=== PATIENT | male | born 1960 ===

== ENCOUNTER 2017-02-09 16:40 | Emergency (ER) | payer OTHER ==
[2017-02-09 17:15] VITALS: BMI 31.1
[2017-02-09 17:17] VITALS: O2SAT 100
--- NOTE | 2017-02-09 17:28 | C.PDOC ---
History Of Present Illness 56M c/o left leg pain worse with walking. he was seen for this same complaint here last month. he also admits to intermittent non-exertional left side chest pain radiating to left shoulder for the last "3 or 4 months." no exac or reliev fx. occasional sob. htn denies other pmh. no smoking. no chest pain currently- last time he felt chest pain was 1 week ago. he says his main concern today is his leg. Time Seen by Provider: 02/09/17 17:28 Chief Complaint (Nursing): Lower Extremity Problem/Injury Past Medical History Vital Signs: Last Vital Signs Temp 98.0 F 02/09/17 20:54 Pulse 65 02/09/17 20:54 Resp 18 02/09/17 20:54 BP 141/95 H 02/09/17 20:54 Pulse Ox 100 02/09/17 21:01 - Medical History PMH: HTN Family History: States: Unknown Family Hx - Social History Hx Alcohol Use: No Hx Substance Use: No - Immunization History Hx Influenza Vaccination: No Review Of Systems Except As Marked, All Systems Reviewed And Found Negative. Constitutional: Negative for: Fever, Chills Cardiovascular: Positive for: Chest Pain. Negative for: Palpitations Respiratory: Positive for: Shortness of Breath. Negative for: Cough, Hemoptysis , Wheezing Gastrointestinal: Negative for: Nausea, Vomiting, Abdominal Pain, Diarrhea Neurological: Negative for: Weakness, Headache Physical Exam - Physical Exam Appears: Well, Non-toxic, Toxic Skin: Warm, Dry Head: Atraumatic Eye(s): bilateral: PERRL Oral Mucosa: Moist Neck: Normal ROM Chest: No Tenderness, No Subcutaneous Emphysema Cardiovascular: Rhythm Regular, No Murmur Respiratory: No Decreased Breath Sounds, No Accessory Muscle Use, No Rales, No Rhonchi, No Stridor, No Wheezing Gastrointestinal/Abdominal: Soft, No Tenderness Extremity: No Swelling Pulses: Left Radial: Normal, Right Radial: Normal, Left Dorsalis Pedis: Normal, Right Dorsalis Pedis: Normal Neurological/Psych: Oriented x3, Normal Motor, Normal Sensation, Other (no focal deficits) ED Course And Treatment - Laboratory Results Result Diagrams: 02/09/17 17:49 02/09/17 17:49 O2 Sat by Pulse Oximetry: 100 Medical Decision Making Medical Decision Making: I spoke w resident in the clinic who is sent this pt for possible admission for chest pain and leg pain- they requested several lab tests which were ordered. pt was here last month for same leg pain- had neg venous duplex HEART score low risk 1654 I called the hospitalist Dr Knapp for admission- he came down and evaluated the patient and does not feel the patient needs to be admitted- he recommends discharge. the pt is currently stable w nl ecg and neg trop and benign exam- no leg swelling, no neuro or pulse deficits, legs warm and well- perfused. he is comfortable w plan for close outpt follow up and return if worse. Disposition - Disposition Referrals: [facility] [Outside] Disposition: HOME/ ROUTINE Disposition Time: 21:01 Condition: STABLE Additional Instructions: Please follow up with your doctor tomorrow. Return to the ER for any worsening symptoms or for any other concerns. Instructions: Chest Pain (ED), Leg Pain (ED) Forms: Gen Discharge Inst Chinese Print Language: SLOVENIAN - Clinical Impression Clinical Impression: Leg pain, Chest pain
[2017-02-09 17:52] LABS: BASO % 0.3 % (0.0-2.0); EOS # 0.2 K/uL (0.0-0.7); EOS % 3.4 % (0.0-4.0); HEMATOCRIT 45.2 % (35.0-51.0); LYMPH # 1.9 K/uL (1.0-4.3); LYMPH % 26.1 % (20.0-40.0); MEAN CELL VOLUME 91.8 fL (80.0-94.0); MEAN CORPUSCULAR HEMOGLOBIN 30.7 pg (27.0-31.0); MEAN CORPUSCULAR HGB CONC 33.5 g/dL (33.0-37.0); MEAN PLATELET VOLUME 8.9 fL (7.2-11.7); MONO # 0.8 K/uL (0.0-0.8); MONO % 10.8 % (0.0-10.0); RED CELL DISTRIBUTION WIDTH 13.4 % (11.5-14.5); WHITE BLOOD COUNT 7.1 K/uL (4.8-10.8)
[2017-02-09 18:05] LABS: CHLORIDE 96 mmol/L (98-107)
[2017-02-09 18:06] LABS: POTASSIUM 4.1 mmol/L (3.6-5.2); SODIUM 140 mmol/L (132-148)
[2017-02-09 18:08] LABS: CARBON DIOXIDE 28 mmol/L (22-30); CHOLESTEROL 163 mg/dL (0-199); GFR AFRICAN-AMERICAN > 60
[2017-02-09 18:09] LABS: ALB/GLOB RATIO 1.2 (1.0-2.1); ALKALINE PHOSPHATASE 80 U/L (38-126); ALT/SGPT 43 U/L (21-72); AST/SGOT 43 U/L (17-59); BILIRUBIN,TOTAL 0.8 mg/dL (0.2-1.3); BLOOD UREA NITROGEN 14 mg/dL (9-20); CALCIUM 9.4 mg/dl (8.6-10.4); GLUCOSE,RANDOM 89 mg/dL (75-110)
[2017-02-09 18:39] LABS: THYROID STIMULATING HORMONE 0.81 mIU/L (0.46-4.68)
--- NOTE | 2017-02-09 18:42 | RAD ---
HISTORY: Chest pain COMPARISON: No prior. FINDINGS: LUNGS: The lungs are clear. PLEURA: No significant pleural effusion identified, no pneumothorax apparent. CARDIOVASCULAR: Normal. OSSEOUS STRUCTURES: No significant abnormalities. VISUALIZED UPPER ABDOMEN: Normal. OTHER FINDINGS: None. IMPRESSION: No active pulmonary disease.
[2017-02-09 20:56] VITALS: BP 141/95; PULSE 65; RESP 18; TEMP 98
--- NOTE | 2017-02-10 04:55 | CP.PCM.CON ---
History of Present Illness - History of Present Illness History of Present Illness: Medicine Consult CC: "left leg nerve pain and hypertension" HPI: Pt is a 56M with medical history of hypertension who presented to the emergency department complaining of left lower extremity calf pain radiating to proximal thigh. Patient states the pain is intermittent, "nerve pain" and sometimes associated with right upper extremity shoulder pain. He denies loss of sensation or tingling. He said he came to the hospital 15 days ago for the same complaint, was discharged, but the pain never fully resolved. Patient states he is able to walk 500-600 meters prior to experiencing leg pain, which causes him to limp. He had venous doppler of the leg done which did not show a clot. Patient also voices concern in regards to his blood pressure which he states is elevated at home despite taking his blood pressure medication, Norvasc 5 mg po daily, which he has been taking for 3 years. Patient also reports previous episodes of chest pain which last approximately 30 minutes and resolve. Patient denies chest pain today. He also denies palpitations, shortness of breath, abdominal pain, nausea, vomiting, diarrhea, constipation and urinary symptoms. PMD: established care at [facility] PMH: Hypertension Medications: Norvasc 5 mg po daily Allergies: NKDA Family History: Mom from complications related to diabetes, no cardiac disease Surgical History: none Social: Denies tobacco, alcohol and drug use. Works as a danica in grocery store. Review of Systems - Constitutional Constitutional: absent: Chills, Fever - EENT Eyes: absent: Blurred Vision, Change in Vision Nose/Mouth/Throat: absent: Nasal Congestion, Nasal Discharge - Cardiovascular Cardiovascular: Leg Edema, Radiating Pain. absent: Chest Pain, Dyspnea, Dyspnea on Exertion, Palpitations - Respiratory Respiratory: absent: Dyspnea, Dyspnea on Exertion, Wheezing, Chest Congestion - Gastrointestinal Gastrointestinal: absent: Abdominal Pain, Constipation, Diarrhea, Nausea, Vomiting - Genitourinary Genitourinary: absent: Change in Urinary Stream - Musculoskeletal Musculoskeletal: Radiating Pain into Limb. absent: Arthralgias, Numbness, Tingling - Integumentary Integumentary: absent: Changing Lesions, New Lesions - Neurological Neurological: absent: Dizziness, Numbness, Focal Weakness, Headaches - Psychiatric Psychiatric: absent: Anxiety, Depression Past Patient History - Past Social History Smoking Status: Never Smoked - CARDIAC Hx Hypertension: Yes - PSYCHIATRIC Hx Substance Use: No - SURGICAL HISTORY Hx Surgeries: No - ANESTHESIA Hx Anesthesia: No Meds Allergies/Adverse Reactions: Allergies Allergy/AdvReac Type Severity Reaction Status Date / Time No Known Allergies Allergy Verified 02/09/17 17:14 Physical Exam - Constitutional Appears: Non-toxic, No Acute Distress - Head Exam Head Exam: ATRAUMATIC, NORMAL INSPECTION, NORMOCEPHALIC - Eye Exam Eye Exam: EOMI, Normal appearance, PERRL - ENT Exam ENT Exam: Mucous Membranes Moist - Respiratory Exam Respiratory Exam: Clear to Auscultation Bilateral, NORMAL BREATHING PATTERN. absent: Rales, Rhonchi, Wheezes - Cardiovascular Exam Cardiovascular Exam: +S1, +S2. absent: Tachycardia, Diastolic murmur, Systolic Murmur - GI/Abdominal Exam GI & Abdominal Exam: Normal Bowel Sounds, Soft. absent: Distended, Firm, Guarding, Hernia - Extremities Exam Extremities exam: Positive for: pedal pulses present. Negative for: calf tenderness, joint swelling Additional comments: 1+ pitting edema to bilateral lower extremity - Back Exam Back exam: NORMAL INSPECTION - Neurological Exam Neurological exam: Alert, CN II-XII Intact, Oriented x3 - Psychiatric Exam Psychiatric exam: Normal Affect, Normal Mood - Skin Skin Exam: Normal Color, Warm Results - Vital Signs Recent Vital Signs: Last Vital Signs Temp 98.0 F 02/09/17 20:54 Pulse 65 02/09/17 20:54 Resp 18 02/09/17 20:54 BP 141/95 H 02/09/17 20:54 Pulse Ox 100 02/09/17 21:01 - Labs Result Diagrams: 02/09/17 17:49 02/09/17 17:49 Labs: Laboratory Results - last 24 hr 02/09/17 02/09/17 17:49 18:51 WBC 7.1 RBC 4.93 Hgb 15.2 Hct 45.2 MCV 91.8 MCH 30.7 MCHC 33.5 RDW 13.4 Plt Count 311 MPV 8.9 Neut % (Auto) 59.4 Lymph % (Auto) 26.1 [place] % (Auto) 10.8 H Eos % (Auto) 3.4 Baso % (Auto) 0.3 Neut # 4.2 Lymph # 1.9 [place] # 0.8 Eos # 0.2 Baso # 0.0 D-Dimer, Quantitative 233 Sodium 140 Potassium 4.1 Chloride 96 L Carbon Dioxide 28 Anion Gap 20 BUN 14 Creatinine 0.9 Est GFR ( Amer) > 60 Est GFR (Non-Af Amer) > 60 Random Glucose 89 Calcium 9.4 Total Bilirubin 0.8 AST 43 ALT 43 Alkaline Phosphatase 80 Troponin I < 0.0120 Total Protein 9.0 H Albumin 4.9 Globulin 4.1 H Albumin/Globulin Ratio 1.2 Triglycerides 83 Cholesterol 163 LDL Cholesterol Direct 78 HDL Cholesterol 61 25-OH Vitamin D Total 35.5 TSH 3rd Generation 0.81 Assessment & Plan - Assessment and Plan (Free Text) Assessment: 1. Left Lower Extremity Pain venous duplex (from previous admission) - negative edema likely secondary due to amlodipine 2. History of Chest Pain troponin I negative (<0.0120) EKG: NSR rate 70 Recommend follow-up in clinic in 1 week 3. Hypertension Initial blood pressure of 176/109 patient was not given BP meds and pressure went down to 136/82 Continue amlodipine and follow-up as outpatient in clinic - Date & Time Date: 02/10/17 Time: 05:04
--- NOTE | 2017-02-10 12:03 | CARD ---
APPROVED REPORT EKG Measurement Heart [id number] <Conclusion> Normal sinus rhythm Normal ECG
== END 2017-02-09 20:20 | disposition home or self-care (01) ==
LOC: C.ER 16:40 → UNDOADMOB 20:31 → C.9E 20:31
DX: M79.605 Pain in left leg (principal); R07.89 Other chest pain